=== PATIENT | female | born 1960 | race Caucasian/White ===

== ENCOUNTER → 2017-09-07 08:29 | Outpatient (CLI) | payer OTHER, SELFPAY ==
[2017-09-07 09:41] LABS: Add Manual Diff / Slide Review NO; Basophils Percent Auto 1.2 % (0-2); Eosinophils Percent Auto 1.3 % (2-4); Hematocrit 37.3 % (36-46); Hemoglobin 12.7 g/dL (12.0-16.0); Lymphocytes Percent Auto 36.1 % (25-40); Mean Corpuscular HGB Conc 33.9 % (30-36); Mean Corpuscular Volume 94.3 fL (80-100); Neutrophils Absolute Auto 2100 /uL (3000-5900); Neutrophils Percent Auto 53.4 % (50-75); Platelet Count 160 X10^3/uL (150-400); Red Blood Cell Count 3.96 X10^6/uL (4.0-5.2); Red Cell Distribution Width 12.8 % (11.6-14.8); White Blood Cell Count 3.9 X10^3/uL (4.5-11.0)
[2017-09-07 10:55] LABS: Alanine Aminotransferase 28 IU/L (9-52); Albumin 4.8 g/dL (3.5-5.0); Alkaline Phosphatase 32 U/L (38-126); Aspartate Aminotransferase 25 IU/L (14-36); BUN Creatinine Ratio 18.6 (6-22); Bilirubin Total 0.6 mg/dL (0.2-1.3); Calcium 10.1 mg/dL (8.4-10.2); Cholesterol 222 mg/dL (140-199); Estimated Glomerular Filt Rate > 60.0 mL/min (>60); Globulin 2.4 g/dL (1.7-4.1); Glucose 85 mg/dL (70-100); HDL Cholesterol 86 mg/dL (40-60); HEMOLYSIS < 15 (0-50); LDL Cholesterol Calculated 126 mg/dL (<100); Potassium 4.1 mmol/L (3.4-5.1); Sodium 135 mmol/L (137-145); Total Protein 7.2 g/dL (6.3-8.2); Triglycerides 52 mg/dL (35-150)
[2017-09-07 11:07] LABS: Free T3, Triiodothyronine Free 3.01 pg/mL (2.77-5.27); Free T4, Direct Thyroxine 0.79 ng/dL (0.78-2.19)
[2017-09-07 11:21] LABS: Thyroid Stimulating Hormone 1.92 uIU/mL (0.47-4.68)
[2017-09-07 11:30] LABS: Ferritin 29.6 ng/mL (11.1-264); Testosterone 22.5 ng/dL (5.71-77.0)
[2017-09-07 11:45] LABS: Vitamin D 25 Hydroxy (D3) 56.2 ng/mL (30.0-100.0)
[2017-09-08 16:39] LABS: Estradiol 23 pg/mL
[2017-09-08 17:46] LABS: Progesterone < 0.5 ng/mL
== END ==
PROVIDERS: Visit Provider Physician Assistant Medical
DX: Z00.00 Encounter for general adult medical examination without abnormal findings (principal); D33.3 Benign neoplasm of cranial nerves; G43.909 Migraine, unspecified, not intractable, without status migrainosus
CPT/HCPCS: 36415; 80053; 80061; 82306; 82670; 82728; 83735; 84144; 84403; 84439; 84443; 84481; 85025

== ENCOUNTER → 2018-08-02 08:34 | Outpatient (CLI) | payer OTHER, SELFPAY ==
[2018-08-02 11:16] LABS: Free T4, Direct Thyroxine 0.84 ng/dL (0.78-2.19)
[2018-08-02 11:30] LABS: Thyroid Stimulating Hormone 4.41 uIU/mL (0.47-4.68)
[2018-08-02 12:27] LABS: Free T3, Triiodothyronine Free 3.76 pg/mL (2.77-5.27); Triiodothryronine T3 Uptake 27.9 % (23.5-40.5)
== END ==
PROVIDERS: Visit Provider Nurse Practitioner Family
DX: E03.9 Hypothyroidism, unspecified (principal); Z79.899 Other long term (current) drug therapy
CPT/HCPCS: 36415; 84436; 84439; 84443; 84479; 84481

== ENCOUNTER → 2018-11-04 08:59 | Outpatient (CLI) | payer OTHER, SELFPAY ==
[2018-11-04 11:09] LABS: T4 Total Thyroxine 8.89 ug/dL (5.5-11.0); Triiodothryronine T3 Uptake 29.2 % (23.5-40.5)
[2018-11-04 11:23] LABS: Thyroid Stimulating Hormone 0.08 uIU/mL (0.47-4.68)
== END ==
PROVIDERS: Visit Provider Nurse Practitioner Family
DX: E03.8 Other specified hypothyroidism (principal)
CPT/HCPCS: 36415; 84436; 84443; 84479

== ENCOUNTER → 2018-11-25 09:33 | Outpatient (CLI) | payer OTHER, SELFPAY ==
[2018-11-25 10:29] LABS: Iron 120 ug/dL (37-170)
[2018-11-25 10:59] LABS: Thyroid Stimulating Hormone < 0.02 uIU/mL (0.47-4.68)
[2018-11-27 16:19] LABS: Anti Thyroglobulin Antibody 3 IU/mL (< 2); Thyroid Peroxidase Antibodies 3 IU/mL (< 9)
[2018-11-30 10:44] LABS: Triiodothyronine T3 Reverse 23 ng/dL (8-25)
== END ==
PROVIDERS: Visit Provider Nurse Practitioner Family
DX: E03.9 Hypothyroidism, unspecified (principal)
CPT/HCPCS: 36415; 82542; 83540; 84443; 84482; 86376; 86800

== ENCOUNTER → 2019-02-12 09:08 | Outpatient (CLI) | payer OTHER, SELFPAY ==
[2019-02-12 10:41] LABS: T4 Total Thyroxine 6.55 ug/dL (5.5-11.0)
[2019-02-12 10:55] LABS: Thyroid Stimulating Hormone 8.63 uIU/mL (0.47-4.68)
[2019-02-14 18:41] LABS: Triiodothyronine T3 Total 160 ng/dL (76-181)
[2019-02-15 15:02] LABS: Anti Thyroglobulin Antibody 2 IU/mL (< 2)
== END ==
PROVIDERS: Visit Provider Nurse Practitioner Family
DX: E03.9 Hypothyroidism, unspecified (principal); Z79.899 Other long term (current) drug therapy
CPT/HCPCS: 36415; 84436; 84443; 84480; 86800

== ENCOUNTER → 2019-05-13 09:10 | Outpatient (CLI) | payer OTHER, SELFPAY ==
[2019-05-13 10:57] LABS: T4 Total Thyroxine 8.29 ug/dL (5.5-11.0)
[2019-05-13 11:10] LABS: Thyroid Stimulating Hormone 1.71 uIU/mL (0.47-4.68)
[2019-05-15 17:01] LABS: Thyroglobulin Level 1.9 ng/mL (2.8-40.9)
[2019-05-17 18:30] LABS: Triiodothyronine T3 Total 164 ng/dL (76-181)
[2019-05-24 15:41] LABS: Anti Thyroglobulin Antibody 1 IU/mL (< 2)
== END ==
PROVIDERS: Visit Provider Nurse Practitioner Family
DX: E03.9 Hypothyroidism, unspecified (principal); Z79.899 Other long term (current) drug therapy
CPT/HCPCS: 36415; 84432; 84436; 84443; 84480; 86800

== ENCOUNTER → 2019-11-18 08:42 | Outpatient (CLI) | payer OTHER, SELFPAY ==
[2019-11-18 09:51] LABS: Albumin 5.1 g/dL (3.5-5.0); Albumin Globulin Ratio 2.3 (1.0-2.8); Bilirubin Total 0.6 mg/dL (0.2-1.3); Blood Urea Nitrogen 11 mg/dL (7-17); Calcium 10.8 mg/dL (8.4-10.2); Carbon Dioxide 28 mmol/L (22-32); Chloride 96 mmol/L (98-107); Cholesterol 228 mg/dL (140-199); Globulin 2.2 g/dL (1.7-4.1); Glucose 89 mg/dL (70-100); HDL Cholesterol 88 mg/dL (40-60); HEMOLYSIS < 15 (0-50); LDL Cholesterol Calculated 127 mg/dL (<100); Potassium 4.1 mmol/L (3.4-5.1); Sodium 133 mmol/L (137-145); Total Protein 7.3 g/dL (6.3-8.2); Triglycerides 64 mg/dL (35-150)
[2019-11-18 09:56] LABS: Alkaline Phosphatase 50 U/L (38-126); Aspartate Aminotransferase 27 IU/L (14-36); BUN Creatinine Ratio 19.3 (6-22); Estimated Glomerular Filt Rate > 60.0 mL/min (>60)
[2019-11-18 09:57] LABS: Alanine Aminotransferase 19 IU/L (<35)
== END ==
PROVIDERS: PCP Physician Assistant Medical; Referring Provider Physician Assistant Medical; Visit Provider Physician Assistant Medical
DX: Z00.00 Encounter for general adult medical examination without abnormal findings (principal)
CPT/HCPCS: 36415; 80053; 80061

== ENCOUNTER → 2020-03-31 07:53 | Outpatient (CLI) | payer OTHER, SELFPAY ==
[2020-03-31 09:27] LABS: Free T3, Triiodothyronine Free 4.07 pg/mL (2.77-5.27); Free T4, Direct Thyroxine 1.05 ng/dL (0.78-2.19)
[2020-03-31 09:40] LABS: Thyroid Stimulating Hormone 2.01 uIU/mL (0.47-4.68)
[2020-04-01 07:09] LABS: Thyroid Peroxidase Antibodies 9 IU/mL (0-34)
== END ==
PROVIDERS: PCP Physician Assistant Medical; Referring Provider Nurse Practitioner Family; Visit Provider Nurse Practitioner Family
DX: E03.9 Hypothyroidism, unspecified (principal); E06.3 Autoimmune thyroiditis
CPT/HCPCS: 36415; 84439; 84443; 84481; 86376

== ENCOUNTER → 2020-07-23 08:50 | Outpatient (CLI) | payer OTHER, SELFPAY ==
[2020-07-23 10:24] LABS: T4 Total Thyroxine 8.68 ug/dL (5.5-11.0)
[2020-07-24 06:09] LABS: Triiodothyronine T3 Total 189 ng/dL (71-180)
== END ==
PROVIDERS: PCP Physician Assistant Medical; Referring Provider Nurse Practitioner Family; Visit Provider Nurse Practitioner Family
DX: E03.9 Hypothyroidism, unspecified (principal)
CPT/HCPCS: 36415; 84436; 84443; 84480

== ENCOUNTER → 2020-08-11 14:58 | Outpatient (CLI) | payer OTHER, SELFPAY ==
[2020-08-11] MEDS: COVID-19 VACC #1, MRNA(MOD) 100 MCG/0.5 ML VIAL IM (15:10)
== END ==
PROVIDERS: PCP Nurse Practitioner Family; Visit Provider Internal Medicine
DX: Z23 Encounter for immunization (principal)
CPT/HCPCS: 0011A; 91301

== ENCOUNTER → 2020-09-01 07:30 | Outpatient (CLI) | payer OTHER, SELFPAY ==
[2020-09-01 08:45] LABS: Alanine Aminotransferase 27 IU/L (<35); Albumin 4.5 g/dL (3.5-5.0); Albumin Globulin Ratio 1.7 (1.0-2.8); Alkaline Phosphatase 37 U/L (38-126); Aspartate Aminotransferase 30 IU/L (14-36); BUN Creatinine Ratio 22.2 (6-22); Bilirubin Total 0.2 mg/dL (0.2-1.3); Blood Urea Nitrogen 12 mg/dL (7-17); Calcium 10.2 mg/dL (8.4-10.2); Carbon Dioxide 26 mmol/L (22-32); Chloride 103 mmol/L (98-107); Estimated Glomerular Filt Rate > 60.0 mL/min (>60); Globulin 2.7 g/dL (1.7-4.1); Glucose 91 mg/dL (70-100); HEMOLYSIS < 15 (0-50); Potassium 3.9 mmol/L (3.4-5.1); Sodium 138 mmol/L (137-145); Total Protein 7.2 g/dL (6.3-8.2)
[2020-09-02 11:21] LABS: Calcium 10.1 mg/dL (8.7-10.2); Parathyroid Hormone, Intact 41 pg/mL (15-65)
== END ==
PROVIDERS: PCP Nurse Practitioner Family; Referring Provider Nurse Practitioner Family; Visit Provider Nurse Practitioner Family
DX: E83.52 Hypercalcemia (principal); E03.9 Hypothyroidism, unspecified; E88.09 Other disorders of plasma-protein metabolism, not elsewhere classified
CPT/HCPCS: 36415; 80053; 82310; 83970

== ENCOUNTER → 2020-09-08 14:50 | Outpatient (CLI) | payer OTHER, SELFPAY ==
[2020-09-08] MEDS: COVID-19 VACC #2, MRNA(MOD) 100 MCG/0.5 ML VIAL IM (15:04)
== END ==
PROVIDERS: PCP Nurse Practitioner Family; Visit Provider Internal Medicine
DX: Z23 Encounter for immunization (principal)
CPT/HCPCS: 0012A; 91301

== ENCOUNTER → 2021-05-19 08:16 | Outpatient (CLI) | payer OTHER, SELFPAY ==
[2021-05-19 09:52] LABS: Thyroid Stimulating Hormone 1.45 uIU/mL (0.47-4.68)
[2021-05-20 07:45] LABS: Triiodothyronine T3 Total 130 ng/dL (71-180)
== END ==
PROVIDERS: PCP Nurse Practitioner Family; Referring Provider Nurse Practitioner Family; Visit Provider Nurse Practitioner Family
DX: E03.9 Hypothyroidism, unspecified (principal)
CPT/HCPCS: 36415; 84436; 84443; 84480

== ENCOUNTER → 2021-07-29 10:11 | Outpatient (CLI) | payer OTHER, SELFPAY ==
[2021-07-29 11:11] LABS: Hematocrit 39.5 % (36-46); Hemoglobin 13.4 g/dL (12.0-16.0); Mean Corpuscular HGB Conc 34.1 % (30-36); Mean Corpuscular Hemoglobin 31.9 PG (26-34); Mean Corpuscular Volume 93.8 fL (80-100); Platelet Count 155 X10^3/uL (150-400); Red Blood Cell Count 4.21 X10^6/uL (4.0-5.2); Red Cell Distribution Width 13.8 % (11.6-14.8); White Blood Cell Count 3.6 X10^3/uL (4.5-11.0)
[2021-07-29 11:30] LABS: Alanine Aminotransferase 27 IU/L (<35); Albumin 4.9 g/dL (3.5-5.0); Albumin Globulin Ratio 1.8 (1.0-2.8); Alkaline Phosphatase 31 U/L (38-126); Aspartate Aminotransferase 34 IU/L (14-36); BUN Creatinine Ratio 24.6 (6-22); Bilirubin Total 0.6 mg/dL (0.2-1.3); Blood Urea Nitrogen 17 mg/dL (7-17); Calcium 10.2 mg/dL (8.4-10.2); Carbon Dioxide 29 mmol/L (22-32); Chloride 103 mmol/L (98-107); Cholesterol 241 mg/dL (140-199); Estimated Glomerular Filt Rate > 60.0 mL/min (>60); Globulin 2.7 g/dL (1.7-4.1); Glucose 107 mg/dL (70-100); HDL Cholesterol 100 mg/dL (40-60); HEMOLYSIS < 15 (0-50); LDL Cholesterol Calculated 129 mg/dL (<100); Potassium 3.8 mmol/L (3.4-5.1); Sodium 139 mmol/L (137-145); Total Protein 7.6 g/dL (6.3-8.2); Triglycerides 60 mg/dL (35-150)
[2021-07-29 15:13] LABS: Hemoglobin A1C% w Est Avg Glu 5.4 % (4.0-6.0)
== END ==
PROVIDERS: PCP Nurse Practitioner Family; Referring Provider Nurse Practitioner Family; Visit Provider Nurse Practitioner Family
DX: Z00.00 Encounter for general adult medical examination without abnormal findings (principal); Z13.6 Encounter for screening for cardiovascular disorders; R73.9 Hyperglycemia, unspecified
CPT/HCPCS: 36415; 80053; 80061; 83036; 85027

== ENCOUNTER → 2022-07-12 10:06 | Outpatient (CLI) | payer OTHER, SELFPAY ==
[2022-07-12 11:22] LABS: Add Manual Diff / Slide Review NO; Basophils Absolute Auto 100 /uL (0-100); Basophils Percent Auto 1.4 % (0-2); Eosinophils Absolute Auto 100 /uL (0-450); Eosinophils Percent Auto 2.3 % (2-4); Hematocrit 38.8 % (36-46); Hemoglobin 13.1 g/dL (12.0-16.0); Lymphocytes Absolute Auto 1400 /uL (1100-4500); Lymphocytes Percent Auto 32.9 % (25-40); Mean Corpuscular HGB Conc 33.7 % (30-36); Mean Corpuscular Hemoglobin 32.1 PG (26-34); Mean Corpuscular Volume 95.3 fL (80-100); Monocytes Absolute Auto 300 /uL (0-900); Monocytes Percent Auto 7.3 % (3-14); Neutrophils Absolute Auto 2300 /uL (1500-7000); Neutrophils Percent Auto 56.1 % (50-75); Platelet Count 172 X10^3/uL (150-400); Red Blood Cell Count 4.08 X10^6/uL (4.0-5.2); Red Cell Distribution Width 13.2 % (11.6-14.8); White Blood Cell Count 4.1 X10^3/uL (4.5-11.0)
[2022-07-12 11:46] LABS: Alanine Aminotransferase 35 IU/L (<35); Albumin 4.4 g/dL (3.5-5.0); Albumin Globulin Ratio 1.6 (1.0-2.8); Alkaline Phosphatase 42 U/L (38-126); Aspartate Aminotransferase 35 IU/L (14-36); BUN Creatinine Ratio 26.5 (6-22); Bilirubin Total 0.3 mg/dL (0.2-1.3); Blood Urea Nitrogen 18 mg/dL (7-17); Calcium 9.3 mg/dL (8.4-10.2); Carbon Dioxide 30 mmol/L (22-32); Chloride 100 mmol/L (98-107); Cholesterol 226 mg/dL (140-199); Estimated Glomerular Filt Rate > 60 mL/min (>60); Globulin 2.7 g/dL (1.7-4.1); Glucose 92 mg/dL (70-100); HDL Cholesterol 79 mg/dL (40-60); HEMOLYSIS < 15 (0-50); LDL Cholesterol Calculated 134 mg/dL (<100); Potassium 3.7 mmol/L (3.4-5.1); Sodium 135 mmol/L (137-145); Total Protein 7.1 g/dL (6.3-8.2); Triglycerides 63 mg/dL (35-150)
[2022-07-12 12:04] LABS: Free T3, Triiodothyronine Free 3.47 pg/mL (2.77-5.27); Free T4, Direct Thyroxine 1.03 ng/dL (0.78-2.19)
[2022-07-12 12:18] LABS: Thyroid Stimulating Hormone 1.52 uIU/mL (0.47-4.68)
== END ==
PROVIDERS: PCP Nurse Practitioner; Referring Provider Nurse Practitioner; Visit Provider Nurse Practitioner
DX: Z00.00 Encounter for general adult medical examination without abnormal findings (principal); E03.9 Hypothyroidism, unspecified; E78.00 Pure hypercholesterolemia, unspecified; E83.52 Hypercalcemia; E88.09 Other disorders of plasma-protein metabolism, not elsewhere classified
CPT/HCPCS: 36415; 80053; 80061; 84439; 84443; 84481; 85025

== ENCOUNTER → 2023-01-24 13:41 | Outpatient (CLI) | payer OTHER, SELFPAY ==
--- NOTE | 2023-01-24 13:43 | DI.RAD.S_ITS ---
PROCEDURE: XR LUMBAR SPINE MIN 4V INDICATIONS: sharp pain after heavy lifting x 1 week TECHNIQUE: 5 views of the lumbar spine were acquired, including bilateral oblique views. COMPARISON: CR, SPINE LUMB 2 OR 3VW, 08/30/2016, 14:00. FINDINGS: Bones: 5 nonrib-bearing vertebrae are present. There is grade 2 anterolisthesis measuring 1.6 cm of L4 on L5. There is trace retrolisthesis L2 on L3. Multilevel degenerative disc space narrowing is present most severe at L4-5 and L5-S1. Moderate foraminal narrowing is present at L5-S1. No vertebral body compression fractures. No suspicious bony lesions. Soft tissues: Overlying bowel gas pattern is normal. No suspicious soft tissue calcifications. Oblique images: No definitive pars defects. However, significant overlying stool on oblique views limits evaluation at the level of grade 2 anterolisthesis. IMPRESSION: Multilevel degenerative changes most severe at L4-5 and L5-S1. Dictated by: Najma Wang M.D. on 01/24/2023 at 16:39 Approved by: Najma Wang M.D. on 01/24/2023 at 16:40
== END ==
PROVIDERS: PCP Nurse Practitioner; Referring Provider Physician Assistant; Visit Provider Physician Assistant
DX: M47.816 Spondylosis without myelopathy or radiculopathy, lumbar region (principal); M47.817 Spondylosis without myelopathy or radiculopathy, lumbosacral region; M54.50 Low back pain, unspecified
CPT/HCPCS: 72110